=== PATIENT | female | born 1985 | race Caucasian/White ===

== ENCOUNTER 2021-02-02 08:34 | Emergency (ER) | payer OTHER ==
[~2021-02-02] VITALS: Ht 177.8 cm; Wt 95.3 kg
[2021-02-02] MEDS ORDERED: KEPPRA 500 MG500 M1 PO (08:54)
[2021-02-02 08:55] VITALS: BP 157/106
== END 2021-02-02 08:55 | disposition home or self-care (01) ==
LOC: ER 08:34
DX: R56.9 Unspecified convulsions (principal); Z72.89 Other problems related to lifestyle